=== PATIENT | male | born 1955 | race Caucasian/White ===

== ENCOUNTER → 2016-08-05 | Outpatient (CLI) | payer BC ==
[2016-08-05 17:33] LABS: BASOPHIL # 0.1 K/uL (0.0-0.2); BASOPHIL % 0.8 %; EOSINOPHIL # 0.2 K/uL (0.0-0.5); EOSINOPHIL % 2.2 %; HEMATOCRIT 50.7 % (37.0-53.0); HEMOGLOBIN 17.2 g/dL (11.0-16.0); IMMATURE GRANULOCYTE # 0.1 K/uL (0.0-0.3); IMMATURE GRANULOCYTE % 0.9 %; LYMPHOCYTE # 1.7 K/uL (0.8-4.0); LYMPHOCYTE % 23.6 %; MCH 31.6 pg (27.0-34.0); MCHC 33.9 gm/dL (32.0-36.5); MCV 93.2 fl (83.0-98.0); MONOCYTE # 0.7 K/uL (0.0-1.0); MONOCYTE % 9.9 %; MPV 11.9 fl (9.4-12.4); NEUTROPHIL # (ANC) 4.6 K/uL (1.4-9.0); NEUTROPHIL % 62.6 %; NRBC % 0 /100WBC (0-0.00); RBC 5.44 M/uL (3.50-5.50); RDW-CV 12.2 % (11.9-14.6); WBC 7.4 K/uL (4.0-11.0)
[2016-08-05 17:49] LABS: ALBUMIN 3.4 gm/dL (3.5-5.0); ANION GAP 11.5 (10.0-19.0); CALCIUM 8.1 mg/dL (8.5-10.5); CREATININE 1.3 mg/dL (0.6-1.3); POTASSIUM 4.5 mMol/L (3.7-5.1)
[2016-08-05 17:53] LABS: PLATELET COUNT 215 K/uL (150-450)
== END | disposition disaster alternative care site (69) ==
LOC: LNHI 17:17
PROVIDERS: Internal Medicine Cardiovascular Disease
DX: I50.22 Chronic systolic (congestive) heart failure (principal); I10 Essential (primary) hypertension; I25.10 Atherosclerotic heart disease of native coronary artery without angina pectoris